=== PATIENT | female | born 1995 | race Caucasian/White ===

== ENCOUNTER → 2017-10-04 | Outpatient (CLI) | payer OTHER ==
--- NOTE | 2017-10-04 15:21 | MAMMOGRAPHY REPORT ---
ULTRASOUND OF LEFT BREAST: 10/04/2017 CLINICAL HISTORY: The patient underwent biopsy of a left breast mass 2014, with pathology yielding a fibroadenoma. The patient reports that the lump feels more prominent and may be increased in size. COMPARISON: Comparison is made to exam dated: 08/26/2015 ultrasound - [facility]. TECHNIQUE: Real-time targeted ultrasound of the left breast was performed. FINDINGS: Real-time, high-resolution targeted ultrasound was performed of the area of the palpable l ump pointed out by the patient, centered around the left 6 to 7:00 subareolar breast. There is an ov al circumscribed hypoechoic solid mass in this region, which measures at least 4.7 x 1.8 x 3.4 cm. T his appears increased in size compared to the August 2015 exam, previously measuring 3.1 x 1.3 x 3.1 cm. Although this still likely represents a fibroadenoma given the benign pathology on biopsy, surg ical excision is recommended given the significant interval increase in size. IMPRESSION: ACR BI-RADS CATEGORY 4: SUSPICIOUS - FOLLOW-UP RECOMMENDED Interval increase in size of palpable left breast mass, now measuring at least 4.7 cm in size. Altho ugh this likely still represents a fibroadenoma given the benign pathology on biopsy, surgical excisi on is recommended given the interval increase in size. A phone call was made to the physician's office to confirm faxed results were received. The patient was verbally notified of the results. Annalisa Cerda M.D. /:10/04/2017 13:12:18 Associate Director Of Development: Virginia RODRÍGUEZ)([place]), [facility] letter sent: Abnormal 4/5 BI-RADS Code: ACR BI-RADS Category 4: Suspicious
== END | disposition home or self-care (01) ==
LOC: C.MAMM 12:52
PROVIDERS: ATTEND Nurse Practitioner Women's Health
DX: R92.8 Other abnormal and inconclusive findings on diagnostic imaging of breast (principal); N63.20 Unspecified lump in the left breast, unspecified quadrant